=== PATIENT | male | born 1960 | race Caucasian/White ===

== ENCOUNTER 2018-01-17 09:29 | Emergency (ER) | payer OTHER ==
[~2018-01-17] VITALS: Ht 182.9 cm; Wt 133.2 kg
[2018-01-17 09:55] LABS: HEMOGLOBIN 16.1 G/DL (12.5-16.6); MCH 33.1 PG (29.0-34.0); MCHC 37.4 G/DL (30.0-36.0); MCV 88.5 FL (86-99); PLATELET COUNT 239 K/uL (156-360); RBC DIS.WIDTH-CV 12.1 % (11.8-14.6); RBC DIS.WIDTH-SD 39.1 % (39-53); RED BLOOD COUNT 4.86 M/uL (4.00-5.50); WHITE BLOOD COUNT 7.5 K/uL (4.1-10.2)
[2018-01-17 10:05] LABS: CHLORIDE 104 mEq/L (99-109); POTASSIUM 3.9 mEq/L (3.7-5.4); SODIUM 138 mEq/L (136-147)
[2018-01-17 10:06] LABS: GLUCOSE 180 mg/dL (70-99)
[2018-01-17 10:10] LABS: CREATININE 1.1 mg/dL (0.6-1.3); GFR ESTIMATE (CALCULATED) > 59 mL/min/ (58.99-99999)
[2018-01-17 10:11] LABS: UREA NITROGEN (BUN) 14 mg/dL (9-23)
[2018-01-17 10:17] LABS: TROP-I INTERPRETATION NEGATIVE; TROPONIN-I < 0.01 ng/mL (0.0-0.30)
[2018-01-17 10:39] LABS: D-DIMER ELISA < 150.00 ng/mLDDU (<230)
[2018-01-17 12:35] LABS: TROP-I INTERPRETATION NEGATIVE; TROPONIN-I < 0.01 ng/mL (0.0-0.30)
[2018-01-17 13:10] VITALS: BP 155/95
== END 2018-01-17 13:13 | disposition home or self-care (01) ==
LOC: EME 09:29
PROVIDERS: Emergency Medicine
DX: R07.9 Chest pain, unspecified (principal); R42 Dizziness and giddiness; R51 Headache
CPT/HCPCS: 70450; 71046; 80048; 84484; 85027; 85379; 93005; 99281; 99284